=== PATIENT | female | born 1960 | race Caucasian/White ===

== ENCOUNTER 2018-08-24 10:31 | Day surgery (SDC) | payer MEDICAID, SELFPAY ==
--- NOTE | 2018-08-24 | EMB_PTH ---
PATIENT: EDUARDO CHA [place] [facility] [place][id number] AGE/SX: 58/F ROOM: RE08/24/[address]: Dr. Ann Castaneda, MDDOB: 1960 BED: DIS: 08/24/2018 SPEC #: [id number] RECD: 08/24/18 14:46 STATUS: SHELLY JAYMIE #: [id number] SIMA: 08/24/18 00:[address]: Ann Castaneda DEPT: SURGICAL PATHOLOGY RECD BY: Bari Abbott ENTERED: 08/24/18 14:46 SP TYPE: ENDOM BX/C DERREK DR: Out of Town Doctor Tissues: Endometrium, NOS Procedures: Surgery Specimen Level IV HEADER OPERATION: Hysteroscopy, D & C, Symphion, polypectomy PRE-OP DIAGNOSIS: Postmenopausal bleeding, thickened endometrium TISSUE SUBMITTED: Endometrial polyps and curettings MICROSCOPIC DIAGNOSIS Endometrial polyps and curettings: Complex endometrial hyperplasia without atypia. Fragments of benign ectocervical epithelium. See comment. DAKOTA:mendoza 08/25/18 COMMENT Clinical correlation and appropriate follow up are necessary. Case has been reviewed in consultation with Dr. Subramanian who concurs with the above diagnosis. IDC:AM MICROSCOPIC DESCRIPTION Slides are reviewed. GROSS DESCRIPTION Received in fixative is one container labeled with the patient's name and designated endometrial polyps and curettings. The specimen consists of multiple irregular fragments of mason-pink to hemorrhagic soft tissue mixed with blood clot that in aggregate measure 5 x 3 x 0.3 cm. The entire specimen is submitted in two cassettes. / DAKOTA:mendoza 08/24/18 TC:5 [facility]: [id number]
[2018-08-24 10:54] VITALS: BP 160/92; PULSE 86; RESP 18; TEMP 37.3; O2SAT 97; BMI 59.5
[2018-08-24 11:20] LABS: Hematocrit 43.5 % (37-47); Hemoglobin 13.9 g/dl (12.0-15.0); Mean Corpuscular Hgb 28.5 pg (27.0-32.0); Mean Corpuscular Volume 89.3 fL (81-99); Mean Platelet Vol. 10.3 fl (6.2-12.0); Platelet Count 264 K/mm3 (150-450); RBC Distribution Width CV 14.9 % (11.6-14.6); RBC Distribution Width SD 48.2 fl (35.1-43.9); Red Blood Count 4.87 M/mm3 (4.2-5.4)
[2018-08-24 11:23] LABS: Scan Indicated on CBC? Y/N NO
--- NOTE | 2018-08-24 12:51 | DCINST_ITS ---
Discharge Diet: No Restrictions Discharge Activity: Return to Normal Activity, May Shower, May Take a Tub Bath - in 2 weeks. Call your doctor if you observe: Fever of 101 or Higher, Using more than one pad per hour Allergies/Adverse Reactions: Allergies adhesive Adverse Reaction (Verified 08/18/18 14:00) Rash SEASONAL Allergy (Uncoded 08/18/18 14:00) Other RUNNY NOSES, ITCHY EYES Medications to take at Discharge Azathioprine [Imuran] 100 mg PO DAILY 08/18/18 Calcium (Elemental) [Os-Robert 500] 500 mg PO DAILY@0800 08/18/18 Cholecalciferol (Vitamin D3) [Vitamin D3] 4,000 unit PO DAILY 08/18/18 Glucosamine HCl 500 mg PO DAILY 08/18/18 L.acidoph,Paracasei, B.lactis [Probiotic] 1 each PO DAILY 08/18/18 Loratadine [Claritin] 10 mg PO DAILY 08/18/18 Multivitamins,Therapeutic [Multivitamin] 1 tablet PO DAILY 08/18/18 [place]-3 Fatty Acids/Fish Oil [[place] 3 Fish Oil Softgel] 1 each PO DAILY 08/18/18 Vitamin B Complex [B Complex] 1 each PO DAILY 08/18/18 Primary Care Physician: [facility] Doctor,Out of [Primary Care Provider] - Test Results: Test results from this visit will be discussed in further detail at your follow- up appointment, if applicable. Please Follow Up With: Ann Castaneda MD When: as scheduled 2 weeks post op
--- NOTE | 2018-08-24 13:16 | PCM.OPRPT ---
Report of Operation Date of Procedure: 08/24/18 Pre-Operative Diagnosis: PMB, thickened Endometrium Post-Operative Diagnosis: PMB, thickened endometrium, Endometrial polyp Surgery/Procedure Performed:: Hysteroscopy, D&C, polypectomy Description of Surgical Findings:: Polyp appearing structure arising from right lateral aspect of uterus. Tubal ostia visualized. Type of Anesthesia:: Local MAC Special Medications: 1% lidocaine Specimen's removed: endometrial polyp, Endometrial curettings Drains: none Estimated Blood Loss (mL): 5 Fluids Replaced: 1000 Description of Procedure: After informed consent was obtained patient was taken to OR and placed in supine position. Anesthesia was given. patient was placed in yellow fin stirrups and prepped and draped in normal sterile fashion. Weighted speculum placed in posterior fornix of vaginal, single tooth tenaculum was used to gently grasped anterior lip of cervix. 1% lidocaine was injected in circumferential fashion. Uterus was sounded to 10cm. Cervix was then gently dilated in an incremental fashion. once adequate dilation was achieved the hysteroscope was inserted using Normal saline as the distention medium. Upon hysteroscopy there was polyp like structure arising from right lateral aspect of uterus. Symphion used to resect this polyp and surrounding endometrial tissue. at this time sharp curettage was performed which yield small amount of tissue. The tissue was then sent to pathology for examination. Uterine cavity intact, no complications. At this time procedure was deemed complete and successful. Tenaculum removed, speculum removed. Good hemostasis appreciated. Vaginal sweep was negative. Instrument and lap count correct x 2. I anticipate normal postoperative course. Grafts/Implants Used: none - Complications none - Admit VTE Documentation VTE Present on Admission: Yes VTE Mechan Device Prophylaxis: SCD's VTE Pharm Prophylaxis ordered?: No
[2018-08-24 13:24] VITALS: BP 141/76; BP 160/92; PULSE 94; RESP 18; TEMP 36.9; O2SAT 93
[2018-08-24 13:30] VITALS: BP 145/84; BP 160/92; PULSE 90; RESP 18; O2SAT 96
[2018-08-24 13:45] VITALS: BP 151/79; BP 160/92; PULSE 83; RESP 18; TEMP 36.8; O2SAT 97
[2018-08-24 14:10] VITALS: BP 143/72; BP 160/92; PULSE 79; RESP 18; TEMP 36.1; O2SAT 97
== END 2018-08-24 14:27 | disposition home or self-care (01) ==
LOC: SDC 10:34 → AC 10:38
PROVIDERS: Referring Provider Obstetrics & Gynecology; Visit Provider Obstetrics & Gynecology
PROC: 0UB98ZZ Excision of Uterus, Via Natural or Artificial Opening Endoscopic (ICD-10-PCS; CPT 58558; principal; 2018-08-24 11:55)
DX: N85.01 Benign endometrial hyperplasia (principal); N95.0 Postmenopausal bleeding; R93.89 Abnormal findings on diagnostic imaging of other specified body structures; K75.4 Autoimmune hepatitis; G47.33 Obstructive sleep apnea (adult) (pediatric); Z79.899 Other long term (current) drug therapy
CPT/HCPCS: 00952; 58558; 36415; 85027; 88305; J7120